=== PATIENT | female | born 1945 | race Caucasian/White ===

== ENCOUNTER 2017-07-30 18:09 | Inpatient (IN) ==
[2017-07-30] MEDS ORDERED: ONDANSETRON 4 MG/2 ML VIAL IV STA (19:37)
[2017-07-30] MEDS ORDERED: MORPHINE 2 MG/1 ML SYRINGE IV STA (19:37)
[2017-07-30] MEDS ORDERED: ASPIRIN 325 MG TABLET PO STA (19:37)
[2017-07-30] MEDS ORDERED: NITROGLYCERIN 2% OINT 1 INCH/GM PACK TOP STA (19:37)
[2017-07-30] MEDS ORDERED: ALUM/MAG/SIMETH/LIDO VISC 1:1 30 ML BOTTLE PO STA (19:37)
[2017-07-30] MEDS ORDERED: ONDANSETRON 4 MG/2 ML VIAL ONE (19:57)
[2017-07-30] MEDS ORDERED: NITROGLYCERIN 2% OINT 1 INCH/GM PACK TOP ONE (19:57)
[2017-07-30] MEDS ORDERED: MORPHINE 2 MG/1 ML SYRINGE ONE (19:57)
[2017-07-30] MEDS ORDERED: ALUM/MAG/SIMETH/LIDO VISC 1:1 30 ML BOTTLE PO ONE (19:57)
[2017-07-30 20:06] LABS: Basophils # 0.1 10*3/uL (0.0-0.2); Basophils % 0.7 % (0.0-0.8); Eosinophils # 0.3 10*3/uL (0.0-0.87); Eosinophils % 2.4 % (0.00-10.9); Hematocrit 41.3 VOL% (35.7-47.0); Hemoglobin 14.1 GM/DL (12.0-16.0); Immature Granulocytes % 0.5 %; Immature Granulocytes Absolute 0.05 #; Lymphocytes # 4.3 10*3/uL (1.4-4.0); Lymphocytes % 40.2 % (21.3-54.2); Mean Corpuscular HGB Conc 34.1 GM/DL (32-36); Mean Corpuscular Hemoglobin 27 PG (27-34); Mean Corpuscular Volume 80.2 FL (87-102); Mean Platelet Volume 11.8 FL (9.6-12.0); Monocytes # 0.9 10*3/uL (0.11-0.8); Monocytes % 7.9 % (1.7-12.7); Neutrophils # 5.2 10*3/uL (1.4-7.4); Neutrophils % 48.3 % (38.7-73.9); Platelet Count 334 T/CUMM (130-400); Red Blood Count 5.15 MC/CUMM (3.8-5.5); Red Cell Distribution Width 14.5 % (9.3-17.3); White Blood Count 10.8 T/CUMM (4-12)
[2017-07-30 20:18] LABS: Alanine Aminotransferase 22 U/L (13-56); Albumin 3.6 G/DL (3.4-5.0); Alkaline Phosphatase 168 U/L (45-117); Aspartate Amino Transferase 16 U/L (0-37); Bilirubin,Total < 0.39 MG/DL (0.2-1.0); Blood Urea Nitrogen 14 MG/DL (7-18); Glucose 140 MG/DL (74-106); Osmolality,Calculated 281.4 MOS/KG (273-304); Potassium 4.1 MMOL/L (3.5-5.1); Sodium 140 MMOL/L (136-145); Total Protein 7.7 G/DL (6.4-8.3)
[2017-07-30 20:27] LABS: INR 0.9; PT Patient Result 9.7 SECS
[2017-07-30] MEDS ORDERED: ENOXAPARIN 100 MG/ML SYRINGE SUBCUT STA (20:52)
[2017-07-30] MEDS ORDERED: ENOXAPARIN 80 MG/0.8 ML SYRINGE SUBCUT ONE (21:13)
[2017-07-30] MEDS ORDERED: MORPHINE 2 MG/1 ML SYRINGE IV PRN (22:53)
[2017-07-30] MEDS ORDERED: metFORMIN 500 MG TABLET PO SCH (22:53)
[2017-07-30] MEDS ORDERED: NON-FORMULARY MEDICATION (Fluticasone/Vilanterol [Breo Ellipta 100-25 Mcg Inh] 1 PUFF) INH SCH (22:53)
[2017-07-30] MEDS ORDERED: ONDANSETRON 4 MG/2 ML VIAL IV PRN (22:53)
[2017-07-30] MEDS ORDERED: ASPIRIN 325 MG TABLET PO SCH (22:53)
[2017-07-31] MEDS ORDERED: POTASSIUM CHLORIDE 10 MEQ TABLET PO ONE (00:01)
[2017-07-31] MEDS: POTASSIUM CHLORIDE 10 MEQ TABLET PO SCH ×2 (00:10→21:42)
[2017-07-31] MEDS: PRAVASTATIN 20 MG TABLET PO SCH ×2 (00:10→21:48)
[2017-07-31] MEDS: DILTIAZEM CD 120 MG CAPSULE PO SCH ×2 (00:10→21:41)
[2017-07-31] MEDS: CALCIUM (CARBONATE)/VITAMIN D 600 MG-400 UNIT TABLET PO SCH ×2 (00:10→21:41)
[2017-07-31] MEDS ORDERED: GLUCAGON 1 MG VIAL IM PRN (00:21)
[2017-07-31] MEDS ORDERED: DEXTROSE 50% 25 GM/50 ML VIAL IV PRN (00:21)
[2017-07-31 02:08] LABS: Risk Ratio 5.19; Thyroid Stimulating Hormone 4.49 uIU/ml (0.358-3.74)
[2017-07-31] MEDS ORDERED: METOCLOPRAMIDE 10 MG TABLET ONE (07:45)
[2017-07-31] MEDS: METOCLOPRAMIDE 5 MG TABLET PO SCH ×3 (07:48→17:59)
[2017-07-31] MEDS ORDERED: MECLIZINE 25 MG TABLET PO PRN (08:17)
[2017-07-31] MEDS ORDERED: glyBURIDE 5 MG TABLET PO PRN (08:17)
[2017-07-31] MEDS ORDERED: FUROSEMIDE 20 MG TABLET PO PRN (08:17)
[2017-07-31] MEDS ORDERED: SIMETHICONE CHEW 125 MG TABLET PO PRN (08:17)
[2017-07-31] MEDS ORDERED: HYDROcodone/HOMATROPINE 5 ML UDCUP PO PRN (08:17)
[2017-07-31] MEDS ORDERED: OXYMETAZOLINE 0.05% NASAL SPRAY 15 ML BOTTLE BOTH NARES PRN (08:17)
[2017-07-31] MEDS: INSULIN LISPRO 100 UNIT/ML SUBCUT SCH ×4 (08:19→21:43)
[2017-07-31] MEDS ORDERED: ENOXAPARIN 40 MG/0.4 ML SYRINGE SUBCUT SCH ×2 (09:00→21:00)
[2017-07-31] MEDS: PANTOPRAZOLE 40 MG TABLET PO SCH (09:01)
[2017-07-31] MEDS: LISINOPRIL/HCTZ 10-12.5 MG TABLET PO SCH (09:01)
[2017-07-31] MEDS: DOCUSATE SODIUM 100 MG CAPSULE PO SCH ×2 (09:01→21:42)
[2017-07-31] MEDS ORDERED: NITROGLYCERIN 2% OINT 1 INCH/GM PACK TOP ONE (09:11)
[2017-07-31] MEDS: NITROGLYCERIN 2% OINT 1 INCH/GM PACK TOP SCH ×3 (09:13→21:48)
[2017-07-31] MEDS ORDERED: diphenhydrAMINE CAP 50 MG CAPSULE PO ONE (13:16)
[2017-07-31] MEDS ORDERED: DIAZEPAM 5 MG TABLET PO ONE (13:17)
[2017-07-31] MEDS ORDERED: MAGNESIUM SULF RIDER 2 GM in PREMIX 1 EACH IV PRN (13:42)
[2017-07-31] MEDS ORDERED: POTASSIUM CHLORIDE RIDER 10 MEQ in PREMIX 1 EACH IV PRN (13:42)
[2017-07-31] MEDS ORDERED: SODIUM CHLORIDE 0.9% IV ONE (14:00)
[2017-07-31] MEDS ORDERED: FAMOTIDINE IV ONE (14:00)
[2017-07-31] MEDS ORDERED: methylPREDNISolone SOD SUC 40 MG/1 ML VIAL IV ONE (14:00)
[2017-07-31] MEDS: SODIUM CHLORIDE 0.9% 1,000 ML IV SCH (14:15)
[2017-07-31] MEDS: predniSONE 50 MG TABLET PO SCH ×2 (14:15→21:42)
[2017-07-31] MEDS: CETIRIZINE 10 MG TABLET PO SCH (14:16)
[2017-07-31] MEDS ORDERED: LIDOCAINE 1% 20 ML VIAL ONE (14:46)
[2017-07-31] MEDS ORDERED: MEPERIDINE 25 MG/1 ML VIAL ONE (14:47)
[2017-07-31] MEDS ORDERED: MIDAZOLAM 2 MG/2 ML VIAL ONE (14:47)
[2017-07-31] MEDS ORDERED: HEPARIN 5,000 UNIT/1 ML VIAL ONE (16:09)
[2017-07-31] MEDS ORDERED: TIROFIBAN 5,000 MCG/100 ML PREMIX IV ONE (16:09)
[2017-07-31] MEDS ORDERED: TIROFIBAN 5,000 MCG/100 ML PREMIX IV SCH (16:14)
[2017-07-31] MEDS ORDERED: TICAGRELOR 90 MG TABLET ONE (16:33)
[2017-07-31] MEDS ORDERED: MAGNESIUM HYDROXIDE SUSP 30 ML UDCUP PO PRN (18:01)
[2017-07-31] MEDS ORDERED: diphenhydrAMINE CAP 25 MG CAPSULE PO PRN (18:01)
[2017-07-31] MEDS: GABAPENTIN 100 MG CAPSULE PO SCH ×2 (18:10→21:42)
[2017-07-31 18:11] LABS: Troponin I Only < 0.015 NG/ML (0.00-0.045)
[2017-07-31] MEDS: CARVEDILOL 3.125 MG TABLET PO SCH ×2 (18:37→21:42)
[2017-07-31] MEDS ORDERED: ALBUTEROL/IPRATROPIUM 3 ML NEB RESP TX PRN (19:11)
[2017-07-31] MEDS ORDERED: OMEPRAZOLE 10 MG PO SCH (21:00)
[2017-07-31] MEDS: TICAGRELOR 90 MG TABLET PO SCH (21:41)
[2017-07-31] MEDS: FAMOTIDINE 20 MG TABLET PO SCH (21:42)
[2017-07-31] MEDS: ACETAMINOPHEN 325 MG TABLET PO SCH (21:42)
[2017-07-31] MEDS ORDERED: clonazePAM 0.5 MG TABLET PO ONE (22:48)
[2017-08-01] MEDS: ALBUTEROL/IPRATROPIUM 3 ML NEB RESP TX SCH ×2 (00:29→07:20)
[2017-08-01] MEDS: SODIUM CHLORIDE 0.9% 1,000 ML IV SCH ×2 (00:48→05:48)
[2017-08-01 01:59] LABS: Basophils % 0.2 % (0.0-0.8); Hematocrit 41.7 VOL% (35.7-47.0); Hemoglobin 13.6 GM/DL (12.0-16.0); Immature Granulocytes % 0.3 %; Immature Granulocytes Absolute 0.03 #; Lymphocytes # 1.3 10*3/uL (1.4-4.0); Lymphocytes % 15.4 % (21.3-54.2); Mean Corpuscular HGB Conc 32.6 GM/DL (32-36); Mean Corpuscular Hemoglobin 26 PG (27-34); Mean Corpuscular Volume 79.4 FL (87-102); Mean Platelet Volume 11.3 FL (9.6-12.0); Monocytes # 0.1 10*3/uL (0.11-0.8); Neutrophils # 7.2 10*3/uL (1.4-7.4); Neutrophils % 83.1 % (38.7-73.9); Platelet Count 300 T/CUMM (130-400); Red Blood Count 5.25 MC/CUMM (3.8-5.5); Red Cell Distribution Width 14.5 % (9.3-17.3); White Blood Count 8.7 T/CUMM (4-12)
[2017-08-01 02:19] LABS: Calcium 9.7 MG/DL (8.5-10.1); Osmolality,Calculated 283.7 MOS/KG (273-304); Potassium 4.7 MMOL/L (3.5-5.1)
[2017-08-01 02:22] LABS: Calcium 9.6 MG/DL (8.5-10.1); Osmolality,Calculated 284.7 MOS/KG (273-304); Potassium 4.7 MMOL/L (3.5-5.1)
[2017-08-01 02:25] LABS: Troponin I Only < 0.015 NG/ML (0.00-0.045)
[2017-08-01] MEDS ORDERED: ASPIRIN EC 81 MG TABLET PO SCH (09:00)
[2017-08-01] MEDS: CARVEDILOL 3.125 MG TABLET PO SCH (09:29)
[2017-08-01] MEDS: INSULIN LISPRO 100 UNIT/ML SUBCUT SCH ×2 (09:29→12:25)
[2017-08-01] MEDS: LISINOPRIL/HCTZ 10-12.5 MG TABLET PO SCH (09:29)
[2017-08-01] MEDS: CETIRIZINE 10 MG TABLET PO SCH (09:30)
[2017-08-01] MEDS: GABAPENTIN 100 MG CAPSULE PO SCH (09:30)
[2017-08-01] MEDS: METOCLOPRAMIDE 5 MG TABLET PO SCH ×2 (09:30→12:25)
[2017-08-01] MEDS: TICAGRELOR 90 MG TABLET PO SCH (09:31)
[2017-08-01] MEDS: ACETAMINOPHEN 325 MG TABLET PO SCH (09:31)
[2017-08-01] MEDS: FAMOTIDINE 20 MG TABLET PO SCH (09:31)
[2017-08-01] MEDS: PANTOPRAZOLE 40 MG TABLET PO SCH (09:31)
[2017-08-01] MEDS: NITROGLYCERIN 2% OINT 1 INCH/GM PACK TOP SCH (09:31)
[2017-08-01] MEDS: predniSONE 50 MG TABLET PO SCH (09:33)
[2017-08-01] MEDS: DOCUSATE SODIUM 100 MG CAPSULE PO SCH (09:39)
[2017-08-01 10:41] LABS: Troponin I Only < 0.015 NG/ML (0.00-0.045)
[2017-08-01 12:22] VITALS: BP 128/65
== END 2017-08-01 15:00 | disposition home or self-care (01) | DRG 247 ==
LOC: N.ED 18:09 → N.EDINP 21:40 → N.2E 07-31 10:58 → N.TELEN 07-31 17:34
PROVIDERS: ADMIT Internal Medicine Geriatric Medicine; ATTEND Internal Medicine Geriatric Medicine

== ENCOUNTER 2017-08-03 21:10 | Inpatient (IN) ==
[2017-08-03 22:35] LABS: Basophils # 0.1 10*3/uL (0.0-0.2); Basophils % 0.6 % (0.0-0.8); Eosinophils # 0.2 10*3/uL (0.0-0.87); Eosinophils % 1.7 % (0.00-10.9); Hematocrit 42.9 VOL% (35.7-47.0); Hemoglobin 14.1 GM/DL (12.0-16.0); Immature Granulocytes % 0.5 %; Immature Granulocytes Absolute 0.07 #; Lymphocytes # 4.7 10*3/uL (1.4-4.0); Lymphocytes % 32.8 % (21.3-54.2); Mean Corpuscular HGB Conc 32.9 GM/DL (32-36); Mean Corpuscular Hemoglobin 26 PG (27-34); Mean Platelet Volume 11.4 FL (9.6-12.0); Monocytes # 1.5 10*3/uL (0.11-0.8); Monocytes % 10.2 % (1.7-12.7); Neutrophils # 7.7 10*3/uL (1.4-7.4); Neutrophils % 54.2 % (38.7-73.9); Platelet Count 337 T/CUMM (130-400); Red Blood Count 5.36 MC/CUMM (3.8-5.5); Red Cell Distribution Width 14.7 % (9.3-17.3); White Blood Count 14.2 T/CUMM (4-12)
[2017-08-03 22:44] LABS: PT Patient Result 10.2 SECS
[2017-08-03 22:48] LABS: Albumin 3.7 G/DL (3.4-5.0); Bilirubin,Total 0.4 MG/DL (0.2-1.0); Calcium 10.5 MG/DL (8.5-10.1); Total Protein 7.7 G/DL (6.4-8.3)
[2017-08-03 22:49] LABS: Osmolality,Calculated 278.1 MOS/KG (273-304); Potassium 3.6 MMOL/L (3.5-5.1)
[2017-08-03 23:04] LABS: Troponin I Only < 0.015 NG/ML (0.00-0.045)
[2017-08-03] MEDS ORDERED: CLOPIDOGREL 75 MG TABLET PO STA (23:07)
[2017-08-03] MEDS ORDERED: CLOPIDOGREL 75 MG TABLET ONE (23:24)
[2017-08-04] MEDS ORDERED: GLUCAGON 1 MG VIAL IM PRN (01:41)
[2017-08-04] MEDS ORDERED: DEXTROSE 50% 25 GM/50 ML VIAL IV PRN (01:41)
[2017-08-04] MEDS ORDERED: ONDANSETRON 4 MG/2 ML VIAL IV PRN (01:41)
[2017-08-04] MEDS ORDERED: SODIUM CHLORIDE 0.9% 1,000 ML IV SCH (01:41)
[2017-08-04] MEDS: ALBUTEROL/IPRATROPIUM 3 ML NEB RESP TX SCH ×4 (02:15→19:35)
[2017-08-04] MEDS: glyBURIDE 5 MG TABLET PO SCH (08:05)
[2017-08-04] MEDS: METOCLOPRAMIDE 5 MG TABLET PO SCH ×4 (08:05→20:49)
[2017-08-04] MEDS: INSULIN REGULAR 100 UNIT/ML SUBCUT SCH ×4 (08:05→21:49)
[2017-08-04] MEDS: ASPIRIN 325 MG TABLET PO SCH (08:05)
[2017-08-04] MEDS: PANTOPRAZOLE 40 MG TABLET PO SCH (08:06)
[2017-08-04] MEDS: CLOPIDOGREL 75 MG TABLET PO SCH (08:06)
[2017-08-04] MEDS ORDERED: glyBURIDE 5 MG TABLET PO PRN (15:40)
[2017-08-04] MEDS ORDERED: OXYMETAZOLINE 0.05% NASAL SPRAY 15 ML BOTTLE BOTH NARES PRN (15:40)
[2017-08-04] MEDS ORDERED: IBUPROFEN 200 MG TABLET PO PRN (15:40)
[2017-08-04] MEDS ORDERED: HYDROcodone/HOMATROPINE 5 ML UDCUP PO PRN (15:40)
[2017-08-04] MEDS ORDERED: FUROSEMIDE 40 MG TABLET PO PRN (15:40)
[2017-08-04] MEDS ORDERED: MECLIZINE 25 MG TABLET PO PRN (15:40)
[2017-08-04] MEDS ORDERED: SIMETHICONE CHEW 125 MG TABLET PO PRN (15:40)
[2017-08-04] MEDS ORDERED: metFORMIN 500 MG TABLET PO SCH ×2 (17:00)
[2017-08-04] MEDS: CARVEDILOL 3.125 MG TABLET PO SCH (20:49)
[2017-08-04] MEDS ORDERED: ASPIRIN 325 MG TABLET PO SCH (21:00)
[2017-08-04] MEDS ORDERED: POTASSIUM CHLORIDE 10 MEQ TABLET PO SCH (21:00)
[2017-08-04] MEDS ORDERED: NON-FORMULARY MEDICATION (Fluticasone/Vilanterol [Breo Ellipta 100-25 Mcg Inh] 1 PUFF) INH SCH (21:00)
[2017-08-04] MEDS ORDERED: DILTIAZEM CD 120 MG CAPSULE PO SCH (21:00)
[2017-08-04] MEDS ORDERED: OMEPRAZOLE 10 MG PO SCH (21:00)
[2017-08-04] MEDS ORDERED: CALCIUM (CARBONATE)/VITAMIN D 600 MG-400 UNIT TABLET PO SCH (21:00)
[2017-08-04] MEDS ORDERED: PRAVASTATIN 20 MG TABLET PO SCH (21:00)
[2017-08-05] MEDS: ALBUTEROL/IPRATROPIUM 3 ML NEB RESP TX SCH ×2 (03:01→07:17)
[2017-08-05] MEDS: METOCLOPRAMIDE 5 MG TABLET PO SCH (08:35)
[2017-08-05] MEDS: glyBURIDE 5 MG TABLET PO SCH (08:35)
[2017-08-05] MEDS: ASPIRIN 325 MG TABLET PO SCH (08:35)
[2017-08-05] MEDS: PANTOPRAZOLE 40 MG TABLET PO SCH (08:36)
[2017-08-05] MEDS: CLOPIDOGREL 75 MG TABLET PO SCH (08:36)
[2017-08-05] MEDS: INSULIN REGULAR 100 UNIT/ML SUBCUT SCH (08:36)
[2017-08-05] MEDS: CARVEDILOL 3.125 MG TABLET PO SCH (08:36)
[2017-08-05 08:41] VITALS: BP 105/60
== END 2017-08-05 11:35 | disposition home or self-care (01) | DRG 312 ==
LOC: N.ED 21:10 → N.EDINP 23:07 → N.TELES 23:44
PROVIDERS: ADMIT Internal Medicine Cardiovascular Disease; ATTEND Internal Medicine Cardiovascular Disease

== ENCOUNTER 2017-10-30 21:36 | Inpatient (IN) ==
[2017-10-30] MEDS ORDERED: ONDANSETRON 4 MG/2 ML VIAL IV STA (22:20)
[2017-10-30] MEDS ORDERED: KETOROLAC 30 MG/1 ML VIAL IV STA (22:20)
[2017-10-30] MEDS ORDERED: SODIUM CHLORIDE 0.9% 1,000 ML IV STA (22:20)
[2017-10-30 22:35] LABS: Basophils # 0.1 10*3/uL (0.0-0.2); Basophils % 0.4 % (0.0-0.8); Eosinophils % 0.1 % (0.00-10.9); Hematocrit 38.1 VOL% (35.7-47.0); Hemoglobin 12.2 GM/DL (12.0-16.0); Immature Granulocytes % 0.5 %; Immature Granulocytes Absolute 0.07 #; Lymphocytes # 1.6 10*3/uL (1.4-4.0); Lymphocytes % 11.8 % (21.3-54.2); Mean Corpuscular Hemoglobin 25 PG (27-34); Mean Corpuscular Volume 78.6 FL (87-102); Mean Platelet Volume 11.2 FL (9.6-12.0); Monocytes # 1.2 10*3/uL (0.11-0.8); Monocytes % 9.3 % (1.7-12.7); Neutrophils # 10.4 10*3/uL (1.4-7.4); Neutrophils % 77.9 % (38.7-73.9); Platelet Count 260 T/CUMM (130-400); Red Blood Count 4.85 MC/CUMM (3.8-5.5); Red Cell Distribution Width 15.8 % (9.3-17.3); White Blood Count 13.4 T/CUMM (4-12)
[2017-10-30 23:01] LABS: Lactic Acid 1.2 MMOL/L (0.4-2.0)
[2017-10-30 23:02] LABS: Albumin 2.9 G/DL (3.4-5.0); Bilirubin,Total 0.6 MG/DL (0.2-1.0); Calcium 9.1 MG/DL (8.5-10.1); Osmolality,Calculated 278.8 MOS/KG (273-304); Potassium 3.5 MMOL/L (3.5-5.1); Total Protein 6.6 G/DL (6.4-8.3)
[2017-10-30] MEDS ORDERED: metroNIDAZOLE INJ 500 MG in PREMIX 1 EACH IV STA (23:53)
[2017-10-30] MEDS ORDERED: CEFEPIME 2,000 MG in SODIUM CHLORIDE 0.9% 100 ML IV STA (23:54)
[2017-10-31 00:59] LABS: Band Neutrophils 10 % (0-10); Lymphocytes 11 % (20-55); Platelet Estimate Adequate; Segmented Neutrophils 72 % (50-85); Total Cells Counted 100
[2017-10-31 01:00] LABS: Polychromasia Slight
[2017-10-31] MEDS ORDERED: SODIUM CHLORIDE 0.9% 1,000 ML IV STA (01:07)
[2017-10-31] MEDS ORDERED: ONDANSETRON 4 MG/2 ML VIAL IV PRN (01:46)
[2017-10-31] MEDS ORDERED: ZALEPLON 5 MG CAPSULE PO PRN (01:46)
[2017-10-31] MEDS ORDERED: ACETAMINOPHEN 325 MG TABLET PO PRN (01:46)
[2017-10-31] MEDS ORDERED: IBUPROFEN 600 MG TABLET PO PRN (01:56)
[2017-10-31] MEDS ORDERED: ALBUTEROL 2.5 MG/3 ML NEB RESP TX PRN (01:56)
[2017-10-31] MEDS ORDERED: FUROSEMIDE 20 MG TABLET PO PRN (01:56)
[2017-10-31] MEDS ORDERED: MECLIZINE 25 MG TABLET PO PRN (01:56)
[2017-10-31] MEDS ORDERED: BUDESONIDE/FORMOTEROL 160-4.5 INHALER 6 GM INH PRN (01:56)
[2017-10-31] MEDS ORDERED: LEVOFLOXACIN INJ 500 MG in PREMIX 1 EACH IV SCH (04:00)
[2017-10-31] MEDS: SODIUM CHLORIDE 0.9% 1,000 ML IV SCH ×2 (04:04→13:10)
[2017-10-31 06:41] LABS: Basophils % 0.4 % (0.0-0.8); Eosinophils % 0.3 % (0.00-10.9); Hematocrit 32.6 VOL% (35.7-47.0); Hemoglobin 10.6 GM/DL (12.0-16.0); Immature Granulocytes % 0.4 %; Immature Granulocytes Absolute 0.04 #; Lymphocytes # 1.1 10*3/uL (1.4-4.0); Lymphocytes % 11.8 % (21.3-54.2); Mean Corpuscular HGB Conc 32.5 GM/DL (32-36); Mean Corpuscular Hemoglobin 26 PG (27-34); Mean Corpuscular Volume 78.4 FL (87-102); Mean Platelet Volume 11.9 FL (9.6-12.0); Monocytes % 11.1 % (1.7-12.7); Neutrophils # 6.8 10*3/uL (1.4-7.4); Platelet Count 224 T/CUMM (130-400); Red Blood Count 4.16 MC/CUMM (3.8-5.5); Red Cell Distribution Width 15.9 % (9.3-17.3); White Blood Count 8.9 T/CUMM (4-12)
[2017-10-31 07:00] LABS: Albumin 2.2 G/DL (3.4-5.0); Bilirubin,Total 0.7 MG/DL (0.2-1.0); Calcium 8.1 MG/DL (8.5-10.1); Osmolality,Calculated 282.4 MOS/KG (273-304); Potassium 3.4 MMOL/L (3.5-5.1); Total Protein 5.7 G/DL (6.4-8.3)
[2017-10-31 07:30] LABS: Band Neutrophils 12 % (0-10); Hypochromasia Slight; Lymphocytes 9 % (20-55); Ovalocytes Slight; Platelet Estimate Adequate; Segmented Neutrophils 75 % (50-85); Total Cells Counted 100
[2017-10-31] MEDS: metroNIDAZOLE INJ 500 MG in PREMIX 1 EACH IV SCH ×3 (09:00→20:02)
[2017-10-31] MEDS: METOCLOPRAMIDE 5 MG TABLET PO SCH ×2 (09:00→12:19)
[2017-10-31] MEDS: CLOPIDOGREL 75 MG TABLET PO SCH (09:00)
[2017-10-31] MEDS: FLUTICASONE 50 MCG NASAL SPRAY 16 GM BOTTLE BOTH NARES SCH (09:00)
[2017-10-31] MEDS: ASPIRIN CHEW 81 MG TABLET PO SCH (09:01)
[2017-10-31] MEDS: PANTOPRAZOLE 40 MG TABLET PO SCH (09:01)
[2017-10-31] MEDS: ENOXAPARIN 40 MG/0.4 ML SYRINGE SUBCUT SCH (09:01)
[2017-10-31] MEDS: POTASSIUM CHLORIDE 10 MEQ TABLET PO SCH (20:05)
[2017-10-31] MEDS: PRAVASTATIN 20 MG TABLET PO SCH (20:05)
[2017-11-01] MEDS: SODIUM CHLORIDE 0.9% 1,000 ML IV SCH ×4 (01:00→18:29)
[2017-11-01] MEDS: metroNIDAZOLE INJ 500 MG in PREMIX 1 EACH IV SCH ×4 (02:13→20:35)
[2017-11-01] MEDS: LEVOFLOXACIN INJ 250 MG in PREMIX 1 EACH IV SCH (05:49)
[2017-11-01] MEDS: CLOPIDOGREL 75 MG TABLET PO SCH (08:28)
[2017-11-01] MEDS: PANTOPRAZOLE 40 MG TABLET PO SCH (08:28)
[2017-11-01] MEDS: ASPIRIN CHEW 81 MG TABLET PO SCH (08:28)
[2017-11-01] MEDS: ENOXAPARIN 40 MG/0.4 ML SYRINGE SUBCUT SCH (08:28)
[2017-11-01] MEDS: FLUTICASONE 50 MCG NASAL SPRAY 16 GM BOTTLE BOTH NARES SCH (08:33)
[2017-11-01] MEDS: PRAVASTATIN 20 MG TABLET PO SCH (20:35)
[2017-11-01] MEDS: POTASSIUM CHLORIDE 10 MEQ TABLET PO SCH (20:35)
[2017-11-01] MEDS ORDERED: COLESTIPOL 1 GM TABLET PO SCH (21:00)
[2017-11-02] MEDS: metroNIDAZOLE INJ 500 MG in PREMIX 1 EACH IV SCH ×3 (02:07→13:32)
[2017-11-02] MEDS: SODIUM CHLORIDE 0.9% 1,000 ML IV SCH ×2 (04:24→10:37)
[2017-11-02] MEDS: LEVOFLOXACIN INJ 250 MG in PREMIX 1 EACH IV SCH (06:06)
[2017-11-02 08:56] LABS: Basophils # 0.1 10*3/uL (0.0-0.2); Basophils % 0.8 % (0.0-0.8); Eosinophils # 0.3 10*3/uL (0.0-0.87); Eosinophils % 5.1 % (0.00-10.9); Hematocrit 31.8 VOL% (35.7-47.0); Hemoglobin 10.3 GM/DL (12.0-16.0); Immature Granulocytes % 0.6 %; Immature Granulocytes Absolute 0.04 #; Lymphocytes # 1.6 10*3/uL (1.4-4.0); Mean Corpuscular HGB Conc 32.4 GM/DL (32-36); Mean Corpuscular Hemoglobin 25 PG (27-34); Mean Corpuscular Volume 77.4 FL (87-102); Mean Platelet Volume 11.3 FL (9.6-12.0); Monocytes # 0.7 10*3/uL (0.11-0.8); Monocytes % 10.5 % (1.7-12.7); Neutrophils # 3.7 10*3/uL (1.4-7.4); Platelet Count 277 T/CUMM (130-400); Red Blood Count 4.11 MC/CUMM (3.8-5.5); Red Cell Distribution Width 15.6 % (9.3-17.3); White Blood Count 6.3 T/CUMM (4-12)
[2017-11-02] MEDS: CLOPIDOGREL 75 MG TABLET PO SCH (08:59)
[2017-11-02] MEDS: FLUTICASONE 50 MCG NASAL SPRAY 16 GM BOTTLE BOTH NARES SCH (08:59)
[2017-11-02] MEDS: PANTOPRAZOLE 40 MG TABLET PO SCH (08:59)
[2017-11-02] MEDS: ENOXAPARIN 40 MG/0.4 ML SYRINGE SUBCUT SCH (09:00)
[2017-11-02 09:43] LABS: Eosinophils 1 % (0-10); Hypochromasia 2+; Lymphocytes 13 % (20-55); Platelet Estimate Adequate; Segmented Neutrophils 78 % (50-85); Total Cells Counted 100
[2017-11-02] MEDS ORDERED: COLESTIPOL 1 GM TABLET PO SCH (11:00)
[2017-11-02 16:18] VITALS: BP 157/72
[2017-11-05 20:01] LABS: Cryptosporidium Antigen Stool Negative (Negative)
== END 2017-11-02 16:54 | disposition home or self-care (01) | DRG 392 ==
LOC: N.ED 21:36 → N.EDINP 10-31 01:46 → N.2E 10-31 03:03
PROVIDERS: ADMIT Internal Medicine; ATTEND Internal Medicine

== ENCOUNTER 2021-03-08 19:29 | Observation (INO) ==
[2021-03-08 19:52] LABS: Basophils # 0.1 10*3/uL (0.0-0.2); Basophils % 0.7 % (0.0-0.8); Eosinophils # 0.2 10*3/uL (0.0-0.87); Eosinophils % 1.9 % (0.00-10.9); Hematocrit 44.3 VOL% (35.7-47.0); Hemoglobin 14.5 GM/DL (12.0-16.0); Immature Granulocytes % 0.3 %; Immature Granulocytes Absolute 0.03 #; Lymphocytes # 4.1 10*3/uL (1.4-4.0); Lymphocytes % 35.8 % (21.3-54.2); Mean Corpuscular HGB Conc 32.7 GM/DL (32-36); Mean Corpuscular Volume 85.4 FL (87-102); Mean Platelet Volume 10.8 FL (9.6-12.0); Monocytes % 8.5 % (1.7-12.7); Neutrophils % 52.8 % (38.7-73.9); Platelet Count 263 T/CUMM (130-400); Red Blood Count 5.19 MC/CUMM (3.8-5.5); Red Cell Distribution Width 14.8 % (9.3-17.3); White Blood Count 11.4 T/CUMM (4-12)
[2021-03-08 20:43] LABS: Albumin 3.7 G/DL (3.4-5.0); Bilirubin,Total 0.5 MG/DL (0.20-1.00); Calcium 9.7 MG/DL (8.5-10.1); Osmolality,Calculated 282.4 MOS/KG (273-304); Potassium 3.8 MMOL/L (3.5-5.1); Total Protein 6.9 G/DL (6.4-8.2)
[2021-03-08] MEDS ORDERED: MORPHINE 2 MG/1 ML SYRINGE IV STA (20:53)
[2021-03-08] MEDS ORDERED: ONDANSETRON 4 MG/2 ML VIAL IV ONE (20:53)
[2021-03-08] MEDS ORDERED: ENOXAPARIN 30 MG/0.3 ML SYRINGE SUBCUT STA (21:32)
[2021-03-08] MEDS ORDERED: ENOXAPARIN 80 MG/0.8 ML SYRINGE SUBCUT STA (21:34)
[2021-03-08] MEDS ORDERED: DEXTROSE 50% 25 GM/50 ML VIAL IV PRN (22:11)
[2021-03-08] MEDS ORDERED: GLUCAGON 1 MG VIAL IM PRN (22:11)
[2021-03-08] MEDS ORDERED: MORPHINE 2 MG/1 ML SYRINGE IV PRN (22:17)
[2021-03-08] MEDS ORDERED: hydrALAZINE 20 MG/1 ML VIAL IV PRN (22:17)
[2021-03-08] MEDS ORDERED: ACETAMINOPHEN 325 MG TABLET PO PRN (22:17)
[2021-03-08 23:14] LABS: Bilirubin,Urine Negative (Negative); Blood, Urine Negative (Negative); Glucose,Urine (UA) >=500 mg/dL (Negative); Ketones,Urine Negative (Negative); Nitrite,Urine Negative (Negative); Protein,Urine Negative; RBC,Urine 1 /HPF (0-4); Squamous Epithelial Cell,Urine Occasional /HPF (0-10); Urine Appearance CLEAR (Clear); Urine Color Yellow (Yellow); Urine Specific Gravity 1.029 (1.001-1.035); Urine Urobilinogen < 2.0 EU/DL (0.2-1.0)
[2021-03-09] MEDS ORDERED: NITROGLYCERIN SL 0.4 MG TABLET SL PRN (05:55)
[2021-03-09 07:03] LABS: Basophils # 0.1 10*3/uL (0.0-0.2); Basophils % 0.9 % (0.0-0.8); Eosinophils # 0.4 10*3/uL (0.0-0.87); Eosinophils % 4.1 % (0.00-10.9); Hematocrit 46.1 VOL% (35.7-47.0); Hemoglobin 14.8 GM/DL (12.0-16.0); Immature Granulocytes % 0.4 %; Immature Granulocytes Absolute 0.03 #; Lymphocytes # 3.5 10*3/uL (1.4-4.0); Lymphocytes % 40.7 % (21.3-54.2); Mean Corpuscular HGB Conc 32.1 GM/DL (32-36); Mean Platelet Volume 10.8 FL (9.6-12.0); Monocytes % 8.1 % (1.7-12.7); Neutrophils % 45.8 % (38.7-73.9); Platelet Count 234 T/CUMM (130-400); Red Cell Distribution Width 14.7 % (9.3-17.3); White Blood Count 8.6 T/CUMM (4-12)
[2021-03-09 07:22] LABS: Calcium 9.6 MG/DL (8.5-10.1); Osmolality,Calculated 283.3 MOS/KG (273-304); Potassium 3.8 MMOL/L (3.5-5.1)
[2021-03-09] MEDS: INSULIN REGULAR 100 UNIT/ML SUBCUT SCH ×4 (08:00→22:02)
[2021-03-09] MEDS: CLOPIDOGREL 75 MG TABLET PO SCH (11:21)
[2021-03-09] MEDS: POTASSIUM CHLORIDE 10 MEQ TABLET PO SCH (11:21)
[2021-03-09] MEDS: PANTOPRAZOLE 40 MG TABLET PO SCH (11:21)
[2021-03-09] MEDS: ISOSORBIDE MONONITRATE 60 MG TABLET PO SCH (11:21)
[2021-03-09] MEDS: ENOXAPARIN 80 MG/0.8 ML SYRINGE SUBCUT SCH ×2 (11:21→22:00)
[2021-03-09] MEDS: FEXOFENADINE 180 MG TABLET PO SCH (11:21)
[2021-03-09] MEDS: FERROUS SULFATE 325 MG TABLET PO SCH ×2 (11:21→22:00)
[2021-03-09] MEDS: predniSONE 20 MG TABLET PO SCH (18:03)
[2021-03-09] MEDS: FAMOTIDINE 20 MG/2 ML VIAL IV SCH (18:04)
[2021-03-09] MEDS: diphenhydrAMINE 50 MG/1 ML VIAL IV SCH (18:04)
[2021-03-09] MEDS: ASPIRIN CHEW 81 MG TABLET PO SCH (22:00)
[2021-03-09] MEDS: traZODone 50 MG TABLET PO SCH (22:00)
[2021-03-10] MEDS: predniSONE 20 MG TABLET PO SCH ×4 (00:08→18:39)
[2021-03-10] MEDS: diphenhydrAMINE 50 MG/1 ML VIAL IV SCH ×4 (00:08→18:40)
[2021-03-10] MEDS: FAMOTIDINE 20 MG/2 ML VIAL IV SCH ×2 (06:30→18:39)
[2021-03-10] MEDS: INSULIN REGULAR 100 UNIT/ML SUBCUT SCH ×4 (07:30→21:40)
[2021-03-10 07:44] LABS: Calcium 10.5 MG/DL (8.5-10.1); Osmolality,Calculated 282.5 MOS/KG (273-304); Potassium 4.6 MMOL/L (3.5-5.1)
[2021-03-10] MEDS: ISOSORBIDE MONONITRATE 60 MG TABLET PO SCH (09:54)
[2021-03-10] MEDS: CLOPIDOGREL 75 MG TABLET PO SCH (09:55)
[2021-03-10] MEDS: PANTOPRAZOLE 40 MG TABLET PO SCH (09:55)
[2021-03-10] MEDS: FERROUS SULFATE 325 MG TABLET PO SCH ×2 (09:55→21:39)
[2021-03-10] MEDS: POTASSIUM CHLORIDE 10 MEQ TABLET PO SCH (09:55)
[2021-03-10] MEDS: ENOXAPARIN 80 MG/0.8 ML SYRINGE SUBCUT SCH (09:56)
[2021-03-10] MEDS ORDERED: SODIUM CHLORIDE 0.45% 1,000 ML IV SCH (11:00)
[2021-03-10] MEDS: FEXOFENADINE 180 MG TABLET PO SCH (11:43)
[2021-03-10] MEDS ORDERED: diphenhydrAMINE CAP 25 MG CAPSULE PO ONE (14:00)
[2021-03-10] MEDS ORDERED: DIAZEPAM 5 MG TABLET PO ONE (14:00)
[2021-03-10] MEDS: ASPIRIN CHEW 81 MG TABLET PO SCH (21:39)
[2021-03-10] MEDS: traZODone 50 MG TABLET PO SCH (21:39)
[2021-03-10] MEDS: ENOXAPARIN 40 MG/0.4 ML SYRINGE SUBCUT SCH (21:40)
[2021-03-11] MEDS: predniSONE 20 MG TABLET PO SCH ×3 (00:56→16:32)
[2021-03-11] MEDS: diphenhydrAMINE 50 MG/1 ML VIAL IV SCH ×3 (00:59→16:31)
[2021-03-11] MEDS: FAMOTIDINE 20 MG/2 ML VIAL IV SCH ×2 (06:08→18:00)
[2021-03-11 10:54] LABS: Basophils % 0.1 % (0.0-0.8); Hematocrit 47.2 VOL% (35.7-47.0); Hemoglobin 14.9 GM/DL (12.0-16.0); Immature Granulocytes % 0.4 %; Immature Granulocytes Absolute 0.05 #; Lymphocytes # 1.5 10*3/uL (1.4-4.0); Lymphocytes % 12.3 % (21.3-54.2); Mean Corpuscular HGB Conc 31.6 GM/DL (32-36); Mean Corpuscular Volume 86.4 FL (87-102); Mean Platelet Volume 10.8 FL (9.6-12.0); Monocytes % 3.1 % (1.7-12.7); Neutrophils % 84.1 % (38.7-73.9); Platelet Count 272 T/CUMM (130-400); Red Blood Count 5.46 MC/CUMM (3.8-5.5); Red Cell Distribution Width 14.7 % (9.3-17.3); White Blood Count 12.3 T/CUMM (4-12)
[2021-03-11 11:13] LABS: Calcium 9.9 MG/DL (8.5-10.1); Osmolality,Calculated 282.8 MOS/KG (273-304); Potassium 4.3 MMOL/L (3.5-5.1)
[2021-03-11] MEDS: ISOSORBIDE MONONITRATE 60 MG TABLET PO SCH (11:16)
[2021-03-11] MEDS: FERROUS SULFATE 325 MG TABLET PO SCH ×2 (11:16→23:06)
[2021-03-11] MEDS: POTASSIUM CHLORIDE 10 MEQ TABLET PO SCH (11:16)
[2021-03-11] MEDS: FEXOFENADINE 180 MG TABLET PO SCH (11:16)
[2021-03-11] MEDS: CLOPIDOGREL 75 MG TABLET PO SCH (11:17)
[2021-03-11] MEDS: PANTOPRAZOLE 40 MG TABLET PO SCH (11:17)
[2021-03-11] MEDS: INSULIN REGULAR 100 UNIT/ML SUBCUT SCH ×3 (12:35→23:07)
[2021-03-11] MEDS ORDERED: HEPARIN/NACL 0.9% 2 UNITS/ML 2,000 UNIT/1,000 ML BAG IV ONE (14:06)
[2021-03-11] MEDS ORDERED: LIDOCAINE 1% 20 ML VIAL ONE (14:06)
[2021-03-11] MEDS ORDERED: NITROGLYCERIN DRIP 50 MG/250 ML BOTTLE IV ONE (14:34)
[2021-03-11] MEDS ORDERED: MIDAZOLAM 2 MG/2 ML VIAL ONE ×3 (14:34→15:15)
[2021-03-11] MEDS ORDERED: fentaNYL 100 MCG/2 ML VIAL ONE ×2 (14:34→15:15)
[2021-03-11] MEDS ORDERED: VERAPAMIL 5 MG/2 ML VIAL ONE (14:35)
[2021-03-11] MEDS ORDERED: HEPARIN 5,000 UNIT/1 ML VIAL ONE (14:56)
[2021-03-11] MEDS ORDERED: ONDANSETRON 4 MG/2 ML VIAL IV PRN (15:46)
[2021-03-11] MEDS: ASPIRIN CHEW 81 MG TABLET PO SCH (23:06)
[2021-03-11] MEDS: traZODone 50 MG TABLET PO SCH (23:06)
[2021-03-11] MEDS: ENOXAPARIN 40 MG/0.4 ML SYRINGE SUBCUT SCH (23:07)
[2021-03-12] MEDS: INSULIN REGULAR 100 UNIT/ML SUBCUT SCH ×2 (00:08→07:56)
[2021-03-12 01:22] VITALS: BP 131/44
[2021-03-12 10:01] LABS: Basophils # 0.1 10*3/uL (0.0-0.2); Basophils % 0.5 % (0.0-0.8); Eosinophils % 0.3 % (0.00-10.9); Hematocrit 50.5 VOL% (35.7-47.0); Hemoglobin 15.6 GM/DL (12.0-16.0); Immature Granulocytes % 0.4 %; Immature Granulocytes Absolute 0.04 #; Lymphocytes % 47.3 % (21.3-54.2); Mean Corpuscular HGB Conc 30.9 GM/DL (32-36); Mean Corpuscular Volume 87.4 FL (87-102); Monocytes % 8.6 % (1.7-12.7); Neutrophils % 42.9 % (38.7-73.9); Platelet Count 297 T/CUMM (130-400); Red Blood Count 5.78 MC/CUMM (3.8-5.5); Red Cell Distribution Width 14.9 % (9.3-17.3); White Blood Count 10.6 T/CUMM (4-12)
[2021-03-12] MEDS: FEXOFENADINE 180 MG TABLET PO SCH (10:12)
[2021-03-12] MEDS: CLOPIDOGREL 75 MG TABLET PO SCH (10:12)
[2021-03-12] MEDS: ISOSORBIDE MONONITRATE 60 MG TABLET PO SCH (10:13)
[2021-03-12] MEDS: PANTOPRAZOLE 40 MG TABLET PO SCH (10:13)
[2021-03-12] MEDS: POTASSIUM CHLORIDE 10 MEQ TABLET PO SCH (10:14)
[2021-03-12] MEDS: FERROUS SULFATE 325 MG TABLET PO SCH (10:14)
[2021-03-12 10:20] LABS: Calcium 9.8 MG/DL (8.5-10.1); Osmolality,Calculated 284.7 MOS/KG (273-304); Potassium 3.7 MMOL/L (3.5-5.1)
== END 2021-03-12 13:54 | disposition home or self-care (01) ==
LOC: N.ED 19:29 → N.EDINP 19:29 → SUATTDRO 22:11 → N.TELES 03-09 02:29
PROVIDERS: ADMIT Hospitalist; ATTEND Internal Medicine

== ENCOUNTER 2021-10-04 20:33 | Observation (INO) ==
[2021-10-04] MEDS ORDERED: ALUM/MAG/SIMETH/LIDO VISC 1:1 30 ML BOTTLE PO STA (21:18)
[2021-10-04] MEDS ORDERED: ASPIRIN 325 MG TABLET PO STA (21:18)
[2021-10-04] MEDS ORDERED: NITROGLYCERIN 2% OINT 1 INCH/GM PACK TOP STA (21:18)
[2021-10-04] MEDS ORDERED: ONDANSETRON 4 MG/2 ML VIAL IV STA (21:18)
[2021-10-04] MEDS ORDERED: MORPHINE 2 MG/1 ML SYRINGE IV STA (21:18)
[2021-10-04 21:22] LABS: Basophils # 0.1 10*3/uL (0.0-0.2); Basophils % 0.6 % (0.0-0.8); Eosinophils # 0.3 10*3/uL (0.0-0.87); Eosinophils % 2.2 % (0.00-10.9); Hematocrit 47.3 VOL% (35.7-47.0); Hemoglobin 15.5 GM/DL (12.0-16.0); Immature Granulocytes % 0.5 %; Immature Granulocytes Absolute 0.07 #; Lymphocytes # 4.2 10*3/uL (1.4-4.0); Lymphocytes % 29.2 % (21.3-54.2); Mean Corpuscular HGB Conc 32.8 GM/DL (32-36); Mean Corpuscular Volume 84.9 FL (87-102); Mean Platelet Volume 10.5 FL (9.6-12.0); Monocytes # 1.1 10*3/uL (0.11-0.8); Monocytes % 7.4 % (1.7-12.7); Neutrophils % 60.1 % (38.7-73.9); Platelet Count 261 T/CUMM (130-400); Red Blood Count 5.57 MC/CUMM (3.8-5.5); Red Cell Distribution Width 15.4 % (9.3-17.3); White Blood Count 14.4 T/CUMM (4-12)
[2021-10-04 21:42] LABS: Platelet Estimate Adequate
[2021-10-04 21:45] LABS: Albumin 3.6 G/DL (3.4-5.0); Bilirubin,Total 0.4 MG/DL (0.20-1.00); Calcium 9.8 MG/DL (8.5-10.1); Osmolality,Calculated 284.3 MOS/KG (273-304); Potassium 4.4 MMOL/L (3.5-5.1)
[2021-10-04] MEDS ORDERED: ALUMINUM/MAGNES/SIMETH MAX STR 30 ML UDCUP PO PRN (22:30)
[2021-10-04] MEDS ORDERED: GLUCAGON 1 MG VIAL IM PRN (22:30)
[2021-10-04] MEDS ORDERED: ACETAMINOPHEN 325 MG TABLET PO PRN (22:30)
[2021-10-04] MEDS ORDERED: hydrALAZINE 20 MG/1 ML VIAL IV PRN (22:30)
[2021-10-04] MEDS ORDERED: DEXTROSE 10% 250 ML BAG IV PRN (22:30)
[2021-10-04] MEDS ORDERED: ONDANSETRON 4 MG/2 ML VIAL IV PRN (22:30)
[2021-10-04] MEDS ORDERED: MORPHINE 2 MG/1 ML SYRINGE IV PRN (22:30)
[2021-10-04] MEDS ORDERED: ALBUTEROL/IPRATROPIUM 3 ML NEB RESP TX PRN (22:30)
[2021-10-05 03:33] LABS: Basophils # 0.1 10*3/uL (0.0-0.2); Basophils % 0.4 % (0.0-0.8); Eosinophils # 0.4 10*3/uL (0.0-0.87); Hemoglobin 14.7 GM/DL (12.0-16.0); Immature Granulocytes % 0.4 %; Immature Granulocytes Absolute 0.05 #; Lymphocytes # 3.9 10*3/uL (1.4-4.0); Lymphocytes % 33.4 % (21.3-54.2); Mean Corpuscular HGB Conc 32.7 GM/DL (32-36); Mean Corpuscular Volume 85.6 FL (87-102); Mean Platelet Volume 10.8 FL (9.6-12.0); Monocytes # 0.9 10*3/uL (0.11-0.8); Neutrophils % 54.8 % (38.7-73.9); Platelet Count 234 T/CUMM (130-400); Red Blood Count 5.26 MC/CUMM (3.8-5.5); Red Cell Distribution Width 15.4 % (9.3-17.3); White Blood Count 11.7 T/CUMM (4-12)
[2021-10-05 04:20] LABS: Calcium 9.5 MG/DL (8.5-10.1); Osmolality,Calculated 283.3 MOS/KG (273-304); Potassium 4.1 MMOL/L (3.5-5.1)
[2021-10-05] MEDS ORDERED: ALBUTEROL 0.63 MG/3 ML NEB RESP TX PRN (08:34)
[2021-10-05] MEDS ORDERED: NITROGLYCERIN SL 0.4 MG TABLET SL PRN (08:34)
[2021-10-05] MEDS ORDERED: CLOPIDOGREL 75 MG TABLET PO SCH (09:00)
[2021-10-05] MEDS ORDERED: FEXOFENADINE 180 MG TABLET PO SCH (09:00)
[2021-10-05] MEDS ORDERED: MECLIZINE 25 MG TABLET PO SCH (09:00)
[2021-10-05] MEDS ORDERED: POTASSIUM CHLORIDE 10 MEQ TABLET PO SCH (09:00)
[2021-10-05] MEDS ORDERED: NON-FORMULARY MEDICATION (Budesonide-Glycopyr-Formoterol [Breztri Aerosphere] 160-9-4.8 mc INH SCH (09:00)
[2021-10-05] MEDS ORDERED: PANTOPRAZOLE 40 MG TABLET PO SCH ×2 (09:00→21:00)
[2021-10-05] MEDS ORDERED: ISOSORBIDE MONONITRATE 60 MG TABLET PO SCH (09:00)
[2021-10-05] MEDS ORDERED: DAPAGLIFLOZIN 10 MG TABLET PO SCH (09:00)
[2021-10-05] MEDS ORDERED: ALBUTEROL 2.5 MG/3 ML NEB RESP TX PRN (12:01)
[2021-10-05] MEDS: INSULIN LISPRO 100 UNIT/ML SUBCUT SCH ×2 (12:08→13:36)
[2021-10-05 13:39] VITALS: BP 165/82
[2021-10-05] MEDS ORDERED: OXYBUTYNIN 5 MG TABLET PO SCH (14:00)
[2021-10-05] MEDS ORDERED: CYANOCOBALAMIN 1000 MCG/1 ML VIAL IM SCH (15:00)
[2021-10-05] MEDS ORDERED: traZODone 50 MG TABLET PO SCH (21:00)
[2021-10-05] MEDS ORDERED: ENOXAPARIN 40 MG/0.4 ML SYRINGE SUBCUT SCH (21:00)
[2021-10-05] MEDS ORDERED: ASPIRIN CHEW 81 MG TABLET PO SCH (21:00)
[2021-10-06] MEDS ORDERED: INSULIN GLARGINE 100 UNIT/ML SUBCUT SCH (09:00)
== END 2021-10-05 15:54 | disposition home or self-care (01) ==
LOC: N.EDINP 20:33 → N.ED 20:33 → N.TELES 10-05 11:46
PROVIDERS: ADMIT Internal Medicine; ATTEND Internal Medicine

== ENCOUNTER 2022-02-08 18:54 | Observation (INO) ==
[2022-02-08] MEDS ORDERED: ALUM/MAG/SIMETH/LIDO VISC 1:1 30 ML BOTTLE PO STA (19:42)
[2022-02-08] MEDS ORDERED: HYDROmorphone 1 MG/1 ML SYRINGE IV STA (19:42)
[2022-02-08] MEDS ORDERED: ONDANSETRON 4 MG/2 ML VIAL IV STA (19:42)
[2022-02-08] MEDS ORDERED: SODIUM CHLORIDE 0.9% 500 ML IV STA (19:42)
[2022-02-08] MEDS ORDERED: PANTOPRAZOLE 40 MG VIAL IV STA (19:42)
[2022-02-08 20:18] LABS: Basophils # 0.1 10*3/uL (0.0-0.2); Basophils % 0.7 % (0.0-0.8); Eosinophils # 0.3 10*3/uL (0.0-0.87); Eosinophils % 2.2 % (0.00-10.9); Hematocrit 48.9 VOL% (35.7-47.0); Immature Granulocytes % 0.3 %; Immature Granulocytes Absolute 0.04 #; Lymphocytes # 4.3 10*3/uL (1.4-4.0); Lymphocytes % 36.7 % (21.3-54.2); Mean Corpuscular HGB Conc 32.7 GM/DL (32-36); Mean Corpuscular Volume 85.9 FL (87-102); Mean Platelet Volume 10.6 FL (9.6-12.0); Monocytes # 0.9 10*3/uL (0.11-0.8); Monocytes % 7.6 % (1.7-12.7); Neutrophils % 52.5 % (38.7-73.9); Platelet Count 263 T/CUMM (130-400); Red Blood Count 5.69 MC/CUMM (3.8-5.5); Red Cell Distribution Width 14.3 % (9.3-17.3); White Blood Count 11.8 T/CUMM (4-12)
[2022-02-08 20:36] LABS: Albumin 3.2 G/DL (3.4-5.0); Bilirubin,Total 0.5 MG/DL (0.20-1.00); Calcium 11.2 MG/DL (8.5-10.1); Osmolality,Calculated 279.3 MOS/KG (273-304); Potassium 4.1 MMOL/L (3.5-5.1); Total Protein 7.1 G/DL (6.4-8.2)
[2022-02-08 20:52] LABS: Eosinophils 3 % (0-10); Lymphocytes 35 % (20-55); Reactive Lymphocytes Slight; Total Cells Counted 100
[2022-02-08 20:53] LABS: Platelet Estimate Normal
[2022-02-08] MEDS ORDERED: SODIUM CHLORIDE 0.9% 1,000 ML IV STA (22:56)
[2022-02-08 23:39] LABS: Bacteria,Urine Occasional /HPF (Few)
[2022-02-08 23:40] LABS: Bilirubin,Urine Negative (Negative); Blood, Urine Negative (Negative); Glucose,Urine (UA) 250 mg/dL (Negative); Ketones,Urine Negative (Negative); Nitrite,Urine Negative (Negative); Protein,Urine Negative (Negative); Urine Appearance Clear (Clear); Urine Color Yellow (Yellow); Urine Urobilinogen 0.2 eU/dL (<2.0); Urine pH 5.5 (4.5-8.0)
[2022-02-09] MEDS ORDERED: ZALEPLON 5 MG CAPSULE PO PRN (00:01)
[2022-02-09] MEDS ORDERED: GLUCAGON 1 MG VIAL IM PRN ×2 (00:01→09:08)
[2022-02-09] MEDS ORDERED: DEXTROSE 10% 250 ML BAG IV PRN (00:01)
[2022-02-09] MEDS ORDERED: hydrALAZINE 20 MG/1 ML VIAL IV PRN (00:01)
[2022-02-09] MEDS ORDERED: ONDANSETRON 4 MG/2 ML VIAL IV PRN (00:01)
[2022-02-09] MEDS ORDERED: DEXTROSE 5% NACL 0.9% 1,000 ML IV SCH (00:30)
[2022-02-09 05:15] LABS: Basophils # 0.1 10*3/uL (0.0-0.2); Basophils % 0.8 % (0.0-0.8); Eosinophils # 0.2 10*3/uL (0.0-0.87); Eosinophils % 2.7 % (0.00-10.9); Hematocrit 48.4 VOL% (35.7-47.0); Hemoglobin 15.6 GM/DL (12.0-16.0); Immature Granulocytes % 0.2 %; Immature Granulocytes Absolute 0.02 #; Lymphocytes # 2.9 10*3/uL (1.4-4.0); Mean Corpuscular HGB Conc 32.2 GM/DL (32-36); Mean Corpuscular Volume 87.5 FL (87-102); Mean Platelet Volume 10.4 FL (9.6-12.0); Monocytes # 0.7 10*3/uL (0.11-0.8); Monocytes % 8.1 % (1.7-12.7); Neutrophils % 54.2 % (38.7-73.9); Platelet Count 231 T/CUMM (130-400); Red Blood Count 5.53 MC/CUMM (3.8-5.5); White Blood Count 8.5 T/CUMM (4-12)
[2022-02-09 05:29] LABS: Calcium 10.2 MG/DL (8.5-10.1); Osmolality,Calculated 283.1 MOS/KG (273-304); Potassium 4.5 MMOL/L (3.5-5.1)
[2022-02-09] MEDS ORDERED: traZODone 50 MG TABLET PO PRN (06:48)
[2022-02-09] MEDS ORDERED: FEXOFENADINE 180 MG TABLET PO PRN (06:48)
[2022-02-09] MEDS ORDERED: NITROGLYCERIN SL 0.4 MG TABLET SL PRN (06:48)
[2022-02-09] MEDS: INSULIN LISPRO 100 UNIT/ML SUBCUT SCH ×2 (07:25→11:30)
[2022-02-09 07:38] VITALS: BP 147/78
[2022-02-09] MEDS ORDERED: DAPAGLIFLOZIN 10 MG TABLET PO SCH (09:00)
[2022-02-09] MEDS ORDERED: FERROUS SULFATE 325 MG TABLET PO SCH (09:00)
[2022-02-09] MEDS ORDERED: CLOPIDOGREL 75 MG TABLET PO SCH (09:00)
[2022-02-09] MEDS ORDERED: PANTOPRAZOLE 40 MG VIAL IV SCH (09:00)
[2022-02-09] MEDS ORDERED: POTASSIUM CHLORIDE 10 MEQ TABLET PO SCH (09:00)
[2022-02-09] MEDS ORDERED: OXYBUTYNIN 5 MG TABLET PO SCH (09:00)
[2022-02-09] MEDS ORDERED: ISOSORBIDE MONONITRATE 60 MG TABLET PO SCH (09:00)
[2022-02-09] MEDS ORDERED: BUDESONIDE GLYCOPYR FORMOTEROL INH SCH (09:00)
[2022-02-09] MEDS ORDERED: DEXTROSE 50% 25 GM/50 ML VIAL IV PRN (09:08)
[2022-02-09] MEDS ORDERED: ASPIRIN CHEW 81 MG TABLET PO SCH (21:00)
== END 2022-02-09 16:00 | disposition home or self-care (01) ==
LOC: N.ED 18:54 → N.EDINP 18:54 → N.2W 02-09 06:40
PROVIDERS: ADMIT Internal Medicine; ATTEND Internal Medicine

== ENCOUNTER 2022-03-09 08:33 | Inpatient (IN) ==
[2022-03-09 08:56] LABS: Basophils # 0.1 10*3/uL (0.0-0.2); Basophils % 0.5 % (0.0-0.8); Eosinophils % 0.2 % (0.00-10.9); Hematocrit 50.2 VOL% (35.7-47.0); Hemoglobin 16.6 GM/DL (12.0-16.0); Immature Granulocytes % 0.5 %; Lymphocytes # 1.3 10*3/uL (1.4-4.0); Lymphocytes % 7.1 % (21.3-54.2); Mean Corpuscular HGB Conc 33.1 GM/DL (32-36); Mean Corpuscular Volume 84.5 FL (87-102); Mean Platelet Volume 10.8 FL (9.6-12.0); Monocytes % 5.1 % (1.7-12.7); Neutrophils % 86.6 % (38.7-73.9); Platelet Count 256 T/CUMM (130-400); Red Blood Count 5.94 MC/CUMM (3.8-5.5); Red Cell Distribution Width 14.6 % (9.3-17.3)
[2022-03-09] MEDS ORDERED: ASPIRIN 325 MG TABLET ONE (09:10)
[2022-03-09 09:11] LABS: Albumin 3.9 G/DL (3.4-5.0); Bilirubin,Total 1.2 MG/DL (0.20-1.00); Calcium 10.5 MG/DL (8.5-10.1); Osmolality,Calculated 281.5 MOS/KG (273-304); Potassium 4.1 MMOL/L (3.5-5.1); Total Protein 7.5 G/DL (6.4-8.2)
[2022-03-09] MEDS ORDERED: NITROGLYCERIN SL 0.4 MG TABLET SL ONE (09:13)
[2022-03-09] MEDS ORDERED: NITROGLYCERIN SL 0.4 MG TABLET SL PRN (09:15)
[2022-03-09] MEDS ORDERED: ASPIRIN 325 MG TABLET PO STA (09:15)
[2022-03-09] MEDS ORDERED: ENOXAPARIN 100 MG/ML SYRINGE SUBCUT STA (09:15)
[2022-03-09] MEDS ORDERED: ONDANSETRON 4 MG/2 ML VIAL IV STA (10:05)
[2022-03-09] MEDS ORDERED: ONDANSETRON 4 MG/2 ML VIAL ONE (10:39)
[2022-03-09 11:02] LABS: Glucose,Urine (UA) >=1000 mg/dL (Negative); Ketones,Urine Negative (Negative); Nitrite,Urine Negative (Negative); Protein,Urine Negative (Negative); Urine Appearance Clear (Clear); Urine Color Yellow (Yellow); Urine pH 5.5 (4.5-8.0)
[2022-03-09 11:03] LABS: Bilirubin,Urine Negative (Negative); Blood, Urine Trace mg/dL (Negative); Urine Urobilinogen 0.2 eU/dL (<2.0)
[2022-03-09 11:04] LABS: RBC,Urine 2 /HPF (0-4); Squamous Epithelial Cell,Urine Occasional /HPF (0-10)
[2022-03-09] MEDS ORDERED: ACETAMINOPHEN 325 MG TABLET PO PRN (12:55)
[2022-03-09] MEDS ORDERED: hydrALAZINE 20 MG/1 ML VIAL IV PRN (12:55)
[2022-03-09] MEDS ORDERED: ALBUTEROL/IPRATROPIUM 3 ML NEB RESP TX PRN (12:55)
[2022-03-09] MEDS: ONDANSETRON 4 MG/2 ML VIAL IV PRN ×2 (17:25→21:04)
[2022-03-09] MEDS: ASPIRIN CHEW 81 MG TABLET PO SCH (20:40)
[2022-03-09] MEDS: PANTOPRAZOLE 40 MG TABLET PO SCH (20:40)
[2022-03-09] MEDS: MORPHINE 2 MG/1 ML SYRINGE IV PRN (21:05)
[2022-03-09] MEDS: ENOXAPARIN 40 MG/0.4 ML SYRINGE SUBCUT SCH (23:00)
[2022-03-10 05:46] LABS: Basophils # 0.1 10*3/uL (0.0-0.2); Basophils % 0.3 % (0.0-0.8); Eosinophils % 0.2 % (0.00-10.9); Hematocrit 51.9 VOL% (35.7-47.0); Hemoglobin 16.4 GM/DL (12.0-16.0); Immature Granulocytes % 6.3 %; Immature Granulocytes Absolute 1.63 #; Lymphocytes # 2.3 10*3/uL (1.4-4.0); Lymphocytes % 8.9 % (21.3-54.2); Mean Corpuscular HGB Conc 31.6 GM/DL (32-36); Mean Corpuscular Volume 88.4 FL (87-102); Mean Platelet Volume 11.3 FL (9.6-12.0); Monocytes # 1.8 10*3/uL (0.11-0.8); Monocytes % 7.1 % (1.7-12.7); Neutrophils % 77.2 % (38.7-73.9); Platelet Count 208 T/CUMM (130-400); Red Blood Count 5.87 MC/CUMM (3.8-5.5); White Blood Count 25.7 T/CUMM (4-12)
[2022-03-10 06:16] LABS: Potassium 4.3 MMOL/L (3.5-5.1); Risk Ratio 1.58; VLDL Cholesterol 17.8 MG/DL
[2022-03-10 06:27] LABS: Band Neutrophils 3 % (0-10); Lymphocytes 4 % (20-55); Platelet Estimate Adequate; Total Cells Counted 100
[2022-03-10] MEDS: MEROPENEM 500 MG in SODIUM CHLORIDE 0.9% 100 ML IV SCH ×2 (09:55→23:51)
[2022-03-10] MEDS: ISOSORBIDE MONONITRATE 60 MG TABLET PO SCH (09:56)
[2022-03-10] MEDS: DAPAGLIFLOZIN 10 MG TABLET PO SCH (09:56)
[2022-03-10] MEDS: PANTOPRAZOLE 40 MG TABLET PO SCH ×2 (09:56→23:50)
[2022-03-10] MEDS: MORPHINE 2 MG/1 ML SYRINGE IV PRN (10:49)
[2022-03-10] MEDS ORDERED: KETOROLAC 30 MG/1 ML VIAL IV ONE (11:03)
[2022-03-10] MEDS ORDERED: SIMETHICONE CHEW 125 MG TABLET PO PRN (11:22)
[2022-03-10] MEDS ORDERED: GLUCAGON 1 MG VIAL IM PRN (11:46)
[2022-03-10] MEDS ORDERED: DEXTROSE 10% 250 ML BAG IV PRN (11:46)
[2022-03-10] MEDS ORDERED: HYDROmorphone 1 MG/1 ML SYRINGE IV PRN (11:49)
[2022-03-10] MEDS: ONDANSETRON 4 MG/2 ML VIAL IV PRN (14:55)
[2022-03-10] MEDS: LINEZOLID INJ 600 MG/300 ML PREMIX IV SCH (14:55)
[2022-03-10] MEDS: GABAPENTIN 100 MG CAPSULE PO SCH ×2 (16:05→23:51)
[2022-03-10] MEDS: SODIUM CHLORIDE 0.45% 1,000 ML IV SCH (16:16)
[2022-03-10] MEDS: AZITHROMYCIN INJ 500 MG in SODIUM CHLORIDE 0.9% 250 ML IV SCH (16:18)
[2022-03-10] MEDS: ALBUTEROL/IPRATROPIUM 3 ML NEB RESP TX SCH ×2 (18:28→23:53)
[2022-03-10] MEDS: ASPIRIN CHEW 81 MG TABLET PO SCH (23:48)
[2022-03-10] MEDS: ENOXAPARIN 40 MG/0.4 ML SYRINGE SUBCUT SCH (23:50)
[2022-03-11] MEDS: LINEZOLID INJ 600 MG/300 ML PREMIX IV SCH ×2 (03:03→14:02)
[2022-03-11 05:34] LABS: Basophils % 0.2 % (0.0-0.8); Eosinophils # 0.1 10*3/uL (0.0-0.87); Eosinophils % 0.2 % (0.00-10.9); Hematocrit 38.7 VOL% (35.7-47.0); Hemoglobin 12.4 GM/DL (12.0-16.0); Immature Granulocytes % 2.2 %; Immature Granulocytes Absolute 0.45 #; Lymphocytes # 2.4 10*3/uL (1.4-4.0); Lymphocytes % 11.6 % (21.3-54.2); Mean Corpuscular Volume 87.2 FL (87-102); Mean Platelet Volume 11.7 FL (9.6-12.0); Monocytes # 1.4 10*3/uL (0.11-0.8); Monocytes % 6.8 % (1.7-12.7); Platelet Count 173 T/CUMM (130-400); Red Blood Count 4.44 MC/CUMM (3.8-5.5); Red Cell Distribution Width 14.9 % (9.3-17.3); White Blood Count 20.6 T/CUMM (4-12)
[2022-03-11 06:07] LABS: Band Neutrophils 3 % (0-10); Lymphocytes 13 % (20-55); Platelet Estimate Adequate; Total Cells Counted 100
[2022-03-11 06:08] LABS: Hypochromia Slight; Microcytosis Slight
[2022-03-11 07:06] LABS: Calcium 9.2 MG/DL (8.5-10.1); Osmolality,Calculated 282.2 MOS/KG (273-304); Potassium 3.4 MMOL/L (3.5-5.1)
[2022-03-11] MEDS: ALBUTEROL/IPRATROPIUM 3 ML NEB RESP TX SCH ×3 (07:24→19:09)
[2022-03-11] MEDS: DAPAGLIFLOZIN 10 MG TABLET PO SCH (09:27)
[2022-03-11] MEDS: PANTOPRAZOLE 40 MG TABLET PO SCH ×2 (09:28→22:27)
[2022-03-11] MEDS: CLOPIDOGREL 75 MG TABLET PO SCH (09:28)
[2022-03-11] MEDS: MEROPENEM 500 MG in SODIUM CHLORIDE 0.9% 100 ML IV SCH ×2 (09:29→22:28)
[2022-03-11] MEDS: ISOSORBIDE MONONITRATE 60 MG TABLET PO SCH (10:32)
[2022-03-11] MEDS: GABAPENTIN 100 MG CAPSULE PO SCH ×3 (10:32→22:27)
[2022-03-11] MEDS: SODIUM CHLORIDE 0.45% 1,000 ML IV SCH (14:02)
[2022-03-11] MEDS ORDERED: LACTATED RINGERS 1,000 ML IV SCH (16:00)
[2022-03-11] MEDS: AZITHROMYCIN INJ 500 MG in SODIUM CHLORIDE 0.9% 250 ML IV SCH (16:42)
[2022-03-11] MEDS: ASPIRIN CHEW 81 MG TABLET PO SCH (22:28)
[2022-03-11] MEDS: ENOXAPARIN 30 MG/0.3 ML SYRINGE SUBCUT SCH (22:28)
[2022-03-12] MEDS: ALBUTEROL/IPRATROPIUM 3 ML NEB RESP TX SCH ×4 (01:21→19:03)
[2022-03-12] MEDS: LINEZOLID INJ 600 MG/300 ML PREMIX IV SCH ×2 (02:47→13:43)
[2022-03-12 05:10] LABS: Basophils % 0.3 % (0.0-0.8); Eosinophils # 0.1 10*3/uL (0.0-0.87); Eosinophils % 1.4 % (0.00-10.9); Hematocrit 37.4 VOL% (35.7-47.0); Hemoglobin 12.3 GM/DL (12.0-16.0); Immature Granulocytes % 0.5 %; Immature Granulocytes Absolute 0.05 #; Lymphocytes # 2.2 10*3/uL (1.4-4.0); Lymphocytes % 22.1 % (21.3-54.2); Mean Corpuscular HGB Conc 32.9 GM/DL (32-36); Mean Corpuscular Volume 85.6 FL (87-102); Mean Platelet Volume 11.6 FL (9.6-12.0); Monocytes # 0.7 10*3/uL (0.11-0.8); Monocytes % 6.7 % (1.7-12.7); Platelet Count 198 T/CUMM (130-400); Red Blood Count 4.37 MC/CUMM (3.8-5.5); Red Cell Distribution Width 14.6 % (9.3-17.3); White Blood Count 10.1 T/CUMM (4-12)
[2022-03-12 05:39] LABS: Calcium 8.9 MG/DL (8.5-10.1); Potassium 3.2 MMOL/L (3.5-5.1)
[2022-03-12] MEDS: DAPAGLIFLOZIN 10 MG TABLET PO SCH (09:57)
[2022-03-12] MEDS: ISOSORBIDE MONONITRATE 30 MG TABLET PO SCH (09:57)
[2022-03-12] MEDS: MEROPENEM 500 MG in SODIUM CHLORIDE 0.9% 100 ML IV SCH ×2 (09:57→22:30)
[2022-03-12] MEDS: PANTOPRAZOLE 40 MG TABLET PO SCH ×2 (09:57→22:29)
[2022-03-12] MEDS: GABAPENTIN 100 MG CAPSULE PO SCH ×3 (09:57→22:29)
[2022-03-12] MEDS: NYSTATIN 500,000 UNIT/5 ML UDCUP SWISH/SWAL SCH ×3 (13:43→22:29)
[2022-03-12] MEDS: AZITHROMYCIN INJ 500 MG in SODIUM CHLORIDE 0.9% 250 ML IV SCH (16:20)
[2022-03-12] MEDS: ASPIRIN CHEW 81 MG TABLET PO SCH (22:29)
[2022-03-12] MEDS: ENOXAPARIN 30 MG/0.3 ML SYRINGE SUBCUT SCH (22:30)
[2022-03-13] MEDS: ALBUTEROL/IPRATROPIUM 3 ML NEB RESP TX SCH ×3 (00:23→19:12)
[2022-03-13] MEDS: LINEZOLID INJ 600 MG/300 ML PREMIX IV SCH ×2 (01:26→14:49)
[2022-03-13 05:04] LABS: Basophils # 0.1 10*3/uL (0.0-0.2); Basophils % 0.7 % (0.0-0.8); Eosinophils # 0.3 10*3/uL (0.0-0.87); Eosinophils % 3.7 % (0.00-10.9); Hematocrit 37.5 VOL% (35.7-47.0); Hemoglobin 12.5 GM/DL (12.0-16.0); Immature Granulocytes % 0.4 %; Immature Granulocytes Absolute 0.03 #; Lymphocytes # 2.6 10*3/uL (1.4-4.0); Lymphocytes % 37.7 % (21.3-54.2); Mean Corpuscular HGB Conc 33.3 GM/DL (32-36); Mean Corpuscular Volume 85.4 FL (87-102); Monocytes # 0.5 10*3/uL (0.11-0.8); Monocytes % 7.6 % (1.7-12.7); Neutrophils % 49.9 % (38.7-73.9); Platelet Count 206 T/CUMM (130-400); Red Blood Count 4.39 MC/CUMM (3.8-5.5); Red Cell Distribution Width 14.8 % (9.3-17.3)
[2022-03-13 05:30] LABS: Calcium 9.7 MG/DL (8.5-10.1); Osmolality,Calculated 281.4 MOS/KG (273-304); Potassium 3.2 MMOL/L (3.5-5.1)
[2022-03-13] MEDS: PANTOPRAZOLE 40 MG TABLET PO SCH ×2 (09:03→21:34)
[2022-03-13] MEDS: CLOPIDOGREL 75 MG TABLET PO SCH (09:03)
[2022-03-13] MEDS: ISOSORBIDE MONONITRATE 30 MG TABLET PO SCH (09:03)
[2022-03-13] MEDS: DAPAGLIFLOZIN 10 MG TABLET PO SCH (09:03)
[2022-03-13] MEDS: GABAPENTIN 100 MG CAPSULE PO SCH ×3 (09:03→21:34)
[2022-03-13] MEDS: NYSTATIN 500,000 UNIT/5 ML UDCUP SWISH/SWAL SCH ×4 (09:03→21:35)
[2022-03-13] MEDS: MEROPENEM 500 MG in SODIUM CHLORIDE 0.9% 100 ML IV SCH ×2 (09:04→21:35)
[2022-03-13] MEDS ORDERED: POTASSIUM CHLORIDE 20 MEQ TABLET PO ONE ×2 (09:06→09:37)
[2022-03-13] MEDS: AZITHROMYCIN INJ 500 MG in SODIUM CHLORIDE 0.9% 250 ML IV SCH (16:03)
[2022-03-13] MEDS: ENOXAPARIN 30 MG/0.3 ML SYRINGE SUBCUT SCH (21:35)
[2022-03-13] MEDS: ASPIRIN CHEW 81 MG TABLET PO SCH (21:36)
[2022-03-14] MEDS: LINEZOLID INJ 600 MG/300 ML PREMIX IV SCH (01:35)
[2022-03-14 04:42] LABS: Basophils # 0.1 10*3/uL (0.0-0.2); Basophils % 0.8 % (0.0-0.8); Eosinophils # 0.3 10*3/uL (0.0-0.87); Eosinophils % 5.1 % (0.00-10.9); Hematocrit 39.2 VOL% (35.7-47.0); Hemoglobin 12.6 GM/DL (12.0-16.0); Immature Granulocytes % 0.3 %; Immature Granulocytes Absolute 0.02 #; Lymphocytes # 2.7 10*3/uL (1.4-4.0); Lymphocytes % 41.2 % (21.3-54.2); Mean Corpuscular HGB Conc 32.1 GM/DL (32-36); Mean Corpuscular Volume 86.3 FL (87-102); Mean Platelet Volume 10.6 FL (9.6-12.0); Monocytes # 0.7 10*3/uL (0.11-0.8); Monocytes % 10.3 % (1.7-12.7); Neutrophils % 42.3 % (38.7-73.9); Platelet Count 236 T/CUMM (130-400); Red Blood Count 4.54 MC/CUMM (3.8-5.5); Red Cell Distribution Width 14.8 % (9.3-17.3); White Blood Count 6.6 T/CUMM (4-12)
[2022-03-14 05:05] LABS: Calcium 9.3 MG/DL (8.5-10.1); Potassium 4.1 MMOL/L (3.5-5.1)
[2022-03-14] MEDS: ALBUTEROL/IPRATROPIUM 3 ML NEB RESP TX SCH (05:12)
[2022-03-14 07:55] VITALS: BP 161/69
[2022-03-14] MEDS: MEROPENEM 500 MG in SODIUM CHLORIDE 0.9% 100 ML IV SCH (08:56)
[2022-03-14] MEDS: ISOSORBIDE MONONITRATE 30 MG TABLET PO SCH (08:56)
[2022-03-14] MEDS: NYSTATIN 500,000 UNIT/5 ML UDCUP SWISH/SWAL SCH (08:56)
[2022-03-14] MEDS: DAPAGLIFLOZIN 10 MG TABLET PO SCH (08:56)
[2022-03-14] MEDS: GABAPENTIN 100 MG CAPSULE PO SCH (08:56)
[2022-03-14] MEDS: PANTOPRAZOLE 40 MG TABLET PO SCH (08:56)
[2022-03-23] MEDS ORDERED: NON-FORMULARY MEDICATION (Evolocumab [Repatha Sureclick] 140 mg/mL Pen Injector) SUBCUT SCH (09:00)
== END 2022-03-14 11:00 | disposition home or self-care (01) | DRG 871 ==
LOC: N.ED 08:33 → N.EDINP 08:33 → SUATTDRO 13:48 → N.EDINP 03-10 00:17 → N.TELES 03-10 00:37 → SUATTDRO 03-10 08:56
PROVIDERS: ADMIT Internal Medicine; ATTEND Internal Medicine